=== PATIENT | female | born 1945 | race Caucasian/White ===

== ENCOUNTER 2019-04-28 12:29 | Emergency (ER) | payer MEDICARE ==
[~2019-04-28] VITALS: Ht 172.7 cm; Wt 95.0 kg
[2019-04-28 12:33] VITALS: BP 151/76
[2019-04-28] MEDS ORDERED: HYDROcodone/acetaminophen 10/325mg tab PO ONE (12:40)
[2019-04-28] MEDS ORDERED: HYDR-4353 PO (13:51)
[2019-04-28] MEDS ORDERED: IBUP-1984 PO (13:51)
[2019-04-28] MEDS ORDERED: ONDA4TAB6 PO (14:06)
== END 2019-04-28 14:11 | disposition home or self-care (01) ==
LOC: ER 12:30
DX: S63.591A Other specified sprain of right wrist, initial encounter (principal); S80.212A Abrasion, left knee, initial encounter; S80.211A Abrasion, right knee, initial encounter; S00.531A Contusion of lip, initial encounter; I10 Essential (primary) hypertension; E03.9 Hypothyroidism, unspecified; Z88.1 Allergy status to other antibiotic agents; Z79.899 Other long term (current) drug therapy; W01.0XXA Fall on same level from slipping, tripping and stumbling without subsequent striking against object, initial encounter; Y93.89 Activity, other specified; Y92.89 Other specified places as the place of occurrence of the external cause; Y99.8 Other external cause status
CPT/HCPCS: 29125; 73100; 73110; 99284